=== PATIENT | male | born 1995 | race Caucasian/White ===

== ENCOUNTER 2020-01-18 17:36 | Emergency (ER) | payer SELFPAY ==
[~2020-01-18] VITALS: Ht 170 cm; Wt 80.0 kg
[2020-01-18 17:40] VITALS: BP 167/82
[2020-01-18] MEDS ORDERED: morphine INJ 10 MG/ML 1ML (SYR OR VIAL) IVP STA (17:46)
--- NOTE | 2020-01-18 17:54 | ED GU-Male ---
General Chief Complaint: Male Reproductive Stated Complaint: TESTICLE PAIN Nursing Triage Note: LEFT TESTICLE PAIN SUDDEN ONSET. Source: patient History of Present Illness Date Seen by Provider: Jan 18, 2020 Time Seen by Provider: 17:40 Initial Comments Patient is a 24-year-old male who presents with acute onset left testicular pain just prior to ED arrival. Pain is sharp, intense, rated 10 out of 10 is worse with palpation or any type of movement. Patient is unable to find position of comfort. No nausea, vomiting, flank pain, hematuria, urinary frequency, urgency dysuria or urethral discharge. No history of kidney stones. No lower abdominal pain or tenderness. No history of Timing/Duration: just prior to arrival Severity/Quality: severe Location: groin, scrotal Radiation: none Activities at Onset: physical activity Prior Genitourinary Problems: none Allergies and Home Medications Allergies Coded Allergies: No Known Drug Allergies (Unverified , 01/18/20) Patient Home Medication List Home Medication List Reviewed: Yes Review of Systems Review of Systems Constitutional: see HPI EENTM: see HPI Respiratory: see HPI Cardiovascular: see HPI Gastrointestinal: see HPI Genitourinary: see HPI Musculoskeletal: see HPI Skin: see HPI Psychiatric/Neurological: See HPI Endocrine: See HPI Hematologic/Lymphatic: No Symptoms Reported All Other Systemes Reviewed Negative Unless Noted: Yes Past Ogpazwd-Kmpmxo-Jigzbs Hx Past Med/Social Hx: Reviewed Nursing Past Med/Soc Hx Patient Social History Alcohol Use: Denies Use Recreational Drug Use: Yes Drug of Choice: METHAMPHETAMINES Smoking Status: Never a Smoker Recent Foreign Travel: No Contact w/Someone Who Travel: No Recent Infectious Disease Expo: No Recent Hopitalizations: No Physical Abuse: No Sexual Abuse: No Mistreated: No Fear: No Seasonal Allergies Seasonal Allergies: No Past Medical History Surgeries: No Respiratory: No Cardiac: No Neurological: No Genitourinary: No Gastrointestinal: No Musculoskeletal: No Endocrine: No HEENT: No Cancer: No Psychosocial: No Integumentary: No Blood Disorders: No Physical Exam Vital Signs Vital Signs - First Documented 01/18/20 17:40 Temp 35.3 Pulse 93 Resp 22 B/P (MAP) 167/82 (110) Pulse Ox 100 O2 Delivery Room Air Capillary Refill : Less Than 3 Seconds Height, Weight, BMI Height: '" Weight: lbs. oz. kg; 27.00 BMI Method: General Appearance: severe distress HEENT: PERRL/EOMI, TMs normal Neck: non-tender, full range of motion, supple Cardiovascular: normal peripheral pulses, regular rate, rhythm Respiratory: lungs clear Gastrointestinal: non tender, soft, other (left testicular tenderness, no hernia, swelling induration or masses appreciated.) Genital/Rectal: other Back: normal inspection Neurologic/Psychiatric: alert, normal mood/affect, oriented x 3 Focused Exam Sepsis Stage: Ruled Out Progress/Results/Core Measures Suspected Sepsis Recent Fever Within 48 Hours: No Infection Criteria Present: None New/Unexplained Altered Menta: No Sepsis Screen: No Definite Risk SIRS Temperature: Pulse: 93 Respiratory Rate: 22 Blood Pressure 167 /82 Mean: 110 Results/Orders My Orders Orders - MARYBETH FIELDS DO Morphine Injection (Morphine Injection (01/18/20 17:46) Ondansetron Injection (Zofran Injectio (01/18/20 18:00) Vital Signs/I&O 01/18/20 17:40 Temp 35.3 Pulse 93 Resp 22 B/P (MAP) 167/82 (110) Pulse Ox 100 O2 Delivery Room Air Capillary Refill : Less Than 3 Seconds Blood Pressure Mean: 110 Departure Communication (Admissions) Ultrasound is not available at this facility. Patient accepted to [facility] in [place], [place] and accepted by Dr. Root. Impression Primary Impression: Testicle pain Disposition: [facility]F [facility] Condition: Stable DIAMONDMARYBETH FERRELL Jan 18, 2020 17:54
[2020-01-18] MEDS ORDERED: ONDANSETRON 4 MG/2 ML (SDV) Z0FRAN IVP ONE (18:00)
== END 2020-01-18 18:35 | disposition short-term general hospital (02) ==
LOC: ER FS 17:38
DX: N50.812 Left testicular pain (principal)
CPT/HCPCS: 99281